=== PATIENT | female | born 1950 | race Caucasian/White ===

== ENCOUNTER 2017-05-09 08:47 | Day surgery (SDC) | payer OTHER ==
[2017-05-09] MEDS ORDERED: NACL 0.9% 1000 ML 1,000 ML IV SCH (09:00)
--- NOTE | 2017-05-09 10:02 | Anesthesia Consultation ---
Anesthesia Consult and Med Hx Date of service: 05/09/17 - Airway Anesthetic Teeth Evaluation: Edentulous ROM Head & Neck: Adequate Mental/Hyoid Distance: Adequate Mallampati Class: Class II Intubation Access Assessment: Probably Good - Pulmonary Exam CTA: Yes - Cardiac Exam Cardiac Exam: RRR - Pre-Operative Health Status ASA Pre-Surgery Classification: ASA3 Proposed Anesthetic Plan: MAC - Pre-Anesthesia Comment Pre-Anesthesia Comments: honduran speaking - Endocrine Hx Cirrhosis: Yes Hx Non-Insulin Dependent Diabetes: Yes
--- NOTE | 2017-05-09 10:02 | Anesthesia Day of Surgery ---
Anesthesia Day of Surgery - Day of Surgery Patient Examined: Yes Patient H&P Reviewed: Yes Patient is NPO: Yes
[2017-05-09] MEDS ORDERED: WATER FOR IRRIG STERILE IR ONE (10:03)
[2017-05-09] MEDS ORDERED: XYLOCAINE 2% INFILTRATI ONE (10:09)
[2017-05-09] MEDS ORDERED: DIPRIVAN 10 MG/ML IV ONE ×2 (10:09→10:23)
--- NOTE | 2017-05-09 11:01 | Short Stay Summary ---
Short Stay Documentation Date of service: 05/09/17 Narrative H&P: 66 yo female with h/o cirrhosis (suspected russo, although work-up on going to r/ o other etiologies), thrombocytopenia who presents for varices screening and screening colonoscopy. Denies new gi complaints at this time. accompanied by her daughter who translates for pt. - History H&P: obtained from office Past Medical History: other (per clinic note) Past Surgical History: Other Social history: other - Allergies and Medications Current Medications: Allergies No Known Allergies Allergy (Verified 05/09/17 08:56) Home Medications Medication Instructions Recorded Confirmed Last Taken Type Furosemide 40 mg PO DAILY 05/09/17 05/09/17 05/08/17 History Spironolactone 25 mg PO DAILY 05/09/17 05/09/17 05/08/17 History Active Medications Sodium Chloride (Nacl 0.9% 1000 Ml) 1,000 mls @ 50 mls/hr IV DIRECT JANETH Last Admin: 05/09/17 09:36 Dose: 50 mls/hr - Physical exam General appearance: no acute distress Lungs: Clear to auscultation Heart: Regular rate, Normal S1, Normal S2 Gastrointestinal: normoactive bowel sounds Extremities: No edema - Brief post op/procedure progress note Date of procedure: 05/09/17 Pre-op diagnosis: cirrhosis, screening Post-op diagnosis: other (grade II esophageal varices, gastric erosion/gastritis , small colon polyps, diverticulosis, hemorrhoids) Procedure: EGD with variceal banding and biopsy Colonoscopy with cold biopsy forcep polypectomy Anesthesia: MAC Findings: EGD: 3 columns of grade II esophageal varices without bleeding stigmata s/p 3 bands placed Hiatal hernia Gastric erosion in antrum, gastritis. Biopsies obtained Colonoscopy: 2 small colon polyps removed with cold biopsy forceps mild diverticulosis internal hemorrhoids Surgeon: IRINEO BOWMAN Estimated blood loss: minimal Pathology: list (Jar A - gastric biopsies, Jar B - colon polyps) Specimen disposition: to lab Condition: stable - Disposition Condition at discharge: Stable Disposition: DC-01 TO HOME OR SELFCARE Short Stay Discharge Plan Follow up with: MANUEL ARMIJO MD [Primary Care Provider] - 7 Days
--- NOTE | 2017-05-09 11:05 | Operative Report ---
Operative Report Operative Report: Esophagogastroduodenoscopy Procedure Note with Variceal banding and Biopsy Date of procedure: 05/09/2017 Endoscopist: Sylvain wiggins Pre-op diagnosis: cirrhosis, varices screening Post-op diagnosis: Grade II esophageal varices s/p banding, erosive gastritis s/ p biopsies, portal hypertensive gastropathy Anesthesia: MAC Complications: No immediate complications Estimated blood loss: minimal Procedure: After consent was obtained, the patient was placed in the left lateral decubitus position. The fujinon endoscope was inserted into the patient 's mouth under direct vision, and advanced to the 2nd portion of duodenum without difficulty. The patient tolerated the procedure well. The views of the mucosa were good. Patient's vital signs were monitored continuously throughout the procedure. Findings: There were three columns of medium sized (grade II) esophageal varices in the mid and distal esophagus. No high risk bleeding stigmata. Three bands were successfully placed without complications. Medium sized hiatal hernia. There was a small erosion in the antrum with surrounding erythematous mucosa. Biopsies were obtained. There were signs of portal hypertensive gastropathy in the proximal body of the stomach. The duodenum appeared normal Impression: 1. Grade II (medium sized) esophageal varices without bleeding stigmata s/p banding as above 2. Erosive gastritis. Biopsies obtained. 3. Portal hypertensive gastropathy Recommendations: -clear liquid diet today, advance to soft tomorrow and full diet as tolerated in 2 days -surveillance EGD in 1-2 months for variceal eradication -colonoscopy to follow
[2017-05-09 11:07] VITALS: BP 122/57
--- NOTE | 2017-05-09 11:08 | Operative Report ---
Operative Report Operative Report: Colonoscopy with cold forcep biopsy Date of procedure: 05/09/2017 Endoscopist: Sylvain Padilla Pre-op diagnosis: screening colonoscopy Post-op diagnosis: small colon polyps, diverticulosis, internal hemorrhoids Anesthesia: MAC Complications: No immediate complications Estimated blood loss: minimal Procedure: After consent was obtained, the patient was placed in the left lateral decubitus position. The fujinon colonoscope was inserted into the patient's rectum under direct vision, and advanced to the cecum without difficulty. The patient tolerated the procedure well. The views of the mucosa were good. The quality of prep was good. The patient's vital signs were monitored continuously throughout the procedure. Findings: There were two small sessile polyps in the ascending colon (~2 mm in size). Polyps were removed and retrieved with cold biopsy forceps. Few small scattered diverticula in the colon. Internal hemorrhoids were visualized on retroflexion view. Impression: 1. Small colon polyps removed with cold biopsy forceps as above 2. Diverticulosis 3. Internal hemorrhoids Recommendations: -follow-up pathology -high fiber diet daily -repeat colonoscopy in 3-5 years based on pathology results -return to GI clinic as previously scheduled (or 3-4 weeks)
== END 2017-05-09 08:48 | disposition home or self-care (01) ==
LOC: GIO 08:47
PROVIDERS: ATTEND Internal Medicine Gastroenterology
DX: Z12.11 Encounter for screening for malignant neoplasm of colon (principal); I85.00 Esophageal varices without bleeding; K74.60 Unspecified cirrhosis of liver; K64.8 Other hemorrhoids; K63.5 Polyp of colon; K57.30 Diverticulosis of large intestine without perforation or abscess without bleeding; K29.50 Unspecified chronic gastritis without bleeding; K44.9 Diaphragmatic hernia without obstruction or gangrene; B96.81 Helicobacter pylori [H. pylori] as the cause of diseases classified elsewhere; K76.6 Portal hypertension; K31.89 Other diseases of stomach and duodenum; E11.9 Type 2 diabetes mellitus without complications
CPT/HCPCS: 43239; 43244; 45380; 88305; 88342; J2704; J7030